=== PATIENT | male | born 1945 | race Hispanic/Latino ===

== ENCOUNTER → 2020-01-11 | Outpatient (CLI) | payer OTHER ==
[~2020-01-11] MED LIST: ACET-2247 PO; AEC81 PO; CARB1DRO4 OU; CETI10TA57 PO; CHOL200074 PO; FLUT16H NS; METO-408 PO; OXYB5TAB15 PO; SIMV40TA59 PO; [UNRECOGNIZED DRUG - CODE] NASAL; [UNRECOGNIZED DRUG - CODE] TP
== END | disposition home or self-care (01) ==
LOC: SHCH 12:44
PROVIDERS: ATTEND Internal Medicine Cardiovascular Disease
DX: I25.118 Atherosclerotic heart disease of native coronary artery with other forms of angina pectoris (principal)
CPT/HCPCS: 93306; 93356

== ENCOUNTER → 2020-01-14 | Outpatient (CLI) | payer OTHER ==
[~2020-01-14] VITALS: Ht 152.4 cm; Wt 98.9 kg
[~2020-01-14] MED LIST changes: +REGADENOSON 0.4 MG/5 ML PF SYG IVP SCH
== END | disposition home or self-care (01) ==
LOC: SHCH 08:46
PROVIDERS: ATTEND Internal Medicine Cardiovascular Disease
DX: I25.118 Atherosclerotic heart disease of native coronary artery with other forms of angina pectoris (principal)
CPT/HCPCS: 78452; 93017; 96374; A9500 ×2; J2785

== ENCOUNTER → 2022-05-06 | Outpatient (CLI) | payer OTHER ==
[~2022-05-06] MED LIST changes: -REGADENOSON 0.4 MG/5 ML PF SYG IVP SCH
== END | disposition home or self-care (01) ==
LOC: SHCH 07:40
PROVIDERS: ATTEND Internal Medicine Cardiovascular Disease
DX: I87.2 Venous insufficiency (chronic) (peripheral) (principal); I73.9 Peripheral vascular disease, unspecified; I20.9 Angina pectoris, unspecified
CPT/HCPCS: 93306; 93925; 93970

== ENCOUNTER → 2022-05-07 | Outpatient (CLI) | payer OTHER ==
[~2022-05-07] MED LIST changes: +REGADENOSON 0.4 MG/5 ML PF SYG IVP ONE
== END | disposition home or self-care (01) ==
LOC: SHCH 07:30
PROVIDERS: ATTEND Internal Medicine Cardiovascular Disease
DX: I20.9 Angina pectoris, unspecified (principal)
CPT/HCPCS: 78452; 96374; 93017; J2785; A9500 ×2